=== PATIENT | male | born 1995 | race Caucasian/White ===

== ENCOUNTER 2018-03-17 15:31 | Emergency (ER) | payer SELFPAY ==
[2018-03-17] MEDS ORDERED: DIPH/PERTUSS(ACELL)/TETANUS VAC/PF 0.5 ML SYR (>=10YO) IM ONE (16:01)
[2018-03-17] MEDS ORDERED: IBUPROFEN 800 MG TABLET PO ONE (16:01)
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
[2018-03-17 17:02] VITALS: BP 133/75
== END 2018-03-17 17:29 | disposition home or self-care (01) ==
LOC: ER 15:31
DX: S50.11XA Contusion of right forearm, initial encounter (principal); S50.811A Abrasion of right forearm, initial encounter; Y08.89XA Assault by other specified means, initial encounter; F17.200 Nicotine dependence, unspecified, uncomplicated
CPT/HCPCS: 99283

== ENCOUNTER 2019-02-25 02:04 | Emergency (ER) | payer SELFPAY ==
[2019-02-25 02:20] VITALS: BP 152/94
[2019-02-25] MEDS ORDERED: ERYTHROMYCIN 0.5% OPH OINTMENT 3.5 GM (ER DISP) OU PRN (02:58)
--- NOTE | 2019-02-25 03:35 | ER Document Report ---
ED General - General Chief Complaint: Eye Problem Stated Complaint: EYE PROBLEM Time Seen by Provider: 02/25/19 02:40 Primary Care Provider: BILL ISAAC MD [ACTIVE STAFF] - 02/27/19 Notes: Patient is a pleasant 23-year-old male who presents with complaint of redness and itching to the eyes. He has allergies and says for last 1-2 weeks he has been scratching and rubbing his eyes now to the point where he fears that he may have had his eyes infected. He also has a history of dermatitis and says his scalp has been very itchy and inflamed as well. No other complaints at this time. No fevers. Patient has been taking [id number]-[id number]-wculapw allergy medicine as well as antihistamine eyedrops. TRAVEL OUTSIDE OF THE [place] IN LAST 30 DAYS: No - Related Data Allergies/Adverse Reactions: No Known Allergies Allergy (Unverified 03/17/18 15:34) Past Medical History - Social History Smoking Status: Unknown if Ever Smoked Frequency of alcohol use: None Drug Abuse: None Family History: Reviewed & Not Pertinent Patient has suicidal ideation: No Patient has homicidal ideation: No Renal/ Medical History: Denies: Hx Peritoneal Dialysis Past Surgical History: Reports: Hx Genitourinary Surgery - circumscision Review of Systems - Review of Systems Notes: My Normal Review Basic REVIEW OF SYSTEMS: CONSTITUTIONAL : Denies fever, chills, or sweats. Denies recent illness. EENT: Itchiness and inflammation to the eyes. RESPIRATORY: Denies cough, cold, or chest congestion. Denies shortness of breath, difficulty breathing, or wheezing. GASTROINTESTINAL: Denies abdominal pain. Denies nausea, vomiting, or diarrhea. Denies constipation. Last BM: SKIN: Denies rash or skin lesions. ALL OTHER SYSTEMS REVIEWED AND NEGATIVE. Physical Exam - Vital signs Vitals: Temp Pulse Resp BP Pulse Ox 97.9 F 114 H 20 152/94 H 97 02/25/19 02:18 02/25/19 02:18 02/25/19 02:18 02/25/19 02:18 02/25/19 02:18 - Notes Notes: General Appearance: Well nourished, alert, cooperative, no acute distress, no obvious discomfort. Vitals: reviewed, See vital signs table. Head: Scaly skin on scalp consistent with severe seborrheic dermatitis. Eyes: PERRL, EOMI, redness to the conjunctive. Good extraocular motion without significant pain. Patient has small amount blepharitis from rubbing his eyes. Mouth: No decreasd moisture Throat: No tonsillar inflammation, No airway obstruction, No lymphadenopathy Skin: warm, dry, appropriate color, no rash Neuro: speech clear, oriented x 3, normal affect, responds appropriately to questions. Course - Re-evaluation Re-evalutation: 02/25/19 05:46 Patient will be discharged home with erythromycin ointment I suspect he may have developed a secondary infection from his eyes. I encouraged him to continue to take antihistamines for his allergies. I encouraged to use a dandruff type shampoo on his scalp. I encouraged her return to ER immediately if he has fevers, spreading redness or swelling to the face, or if he feels unwell. I will refer him to ophthalmology for further follow-up. Dictation of this chart was performed using voice recognition software; therefore, there may be some unintended grammatical errors. - Vital Signs Vital signs: Temp Pulse Resp BP Pulse Ox 97.9 F 114 H 20 152/94 H 97 02/25/19 02:18 02/25/19 02:18 02/25/19 02:18 02/25/19 02:18 02/25/19 02:18 Discharge - Discharge Clinical Impression: Acute conjunctivitis of both eyes Condition: Stable Disposition: HOME, SELF-CARE Additional Instructions: Please apply the ointment to your eyes 5 times a day for 7 days. Please follow up with the ophthamologist, Dr. Isaac. Call his office to make a follow up appointment. Please return to the ER immediately if you develop worsening redness or swelling in to the face or around the eyes. Please continue to take over the counter allergy medication. Prescriptions: Erythromycin Base [Erythromycin Oph 1 Gm Oint Ud] 1 applic OU ASDIR PRN #1 tube PRN Reason: Forms: Return to Work Referrals: BILL ISAAC MD [ACTIVE STAFF] - 02/27/19
== END 2019-02-25 03:47 | disposition home or self-care (01) ==
LOC: ER 02:04
DX: H10.33 Unspecified acute conjunctivitis, bilateral (principal)
CPT/HCPCS: 99283